=== PATIENT | male | born 2000 ===

== ENCOUNTER 2020-11-13 07:06 | Emergency (ER) | payer SELFPAY ==
--- NOTE | 2020-11-13 09:30 | Emergency Department Report ---
ED Upper Extremity Inj HPI - General Chief Complaint: Extremity Problem,Nontraumatic Stated Complaint: SOB/ BUG BITE Time Seen by Provider: 11/13/20 09:25 Source: patient Mode of arrival: Ambulatory Limitations: No Limitations - History of Present Illness Initial Comments: This is a 20-year-old -Chinese male who presents to the emergency room with an painful abscess to right upper extremity. Patient states 3 days ago he woke up and his arm was swollen. He thought he was bit by a bug and continue to put topical antibiotics to the area. He reports worsening swelling and pain over the past 2 days. He denies drainage, fever, numbness or tingling, or weakness. MD Complaint: Injury to:: right, arm Other Extremity Injury: Arm: Right (Upper arm) Handedness: right Severity scale (0 -10): 10 Associated Symptoms: denies: weakness, numbness - Related Data Previous Rx's Medication Instructions Recorded Last Taken Type Ibuprofen [Motrin 800 MG tab] 800 mg PO Q8HR PRN #20 tablet 11/13/20 Unknown Rx Sulfamethoxazole/Trimethoprim 1 each PO BID #20 tablet 11/13/20 Unknown Rx [Bactrim DS TAB] Allergies Allergy/AdvReac Type Severity Reaction Status Date / Time No Known Allergies Allergy Unverified 11/13/20 08:20 ED Review of Systems ROS: Stated complaint: SOB/ BUG BITE Other details as noted in HPI Constitutional: denies: chills, fever Skin: lesions (Abscess to upper right arm). denies: rash Neurological: denies: headache, weakness, paresthesias Psychiatric: denies: anxiety, depression ED Past Medical Hx - Past Medical History Previous Medical History?: Yes Hx Hypertension: No Hx CVA: No Hx Heart Attack/AMI: No Hx Congestive Heart Failure: No Hx Diabetes: No Hx Deep Vein Thrombosis: No Hx Pulmonary Embolism: No Hx GERD: No Hx Liver Disease: No Hx Renal Disease: No Hx of Cancer: No Hx Sickle Cell Disease: No Hx Arthritis: No Hx Headaches / Migraines: No Hx Seizures: No Hx Kidney Stones: No Hx Psychiatric Treatment: No Hx Asthma: Yes (Not taking medication) Hx COPD: No Hx Tuberculosis: No Hx Dementia: No Hx HIV: No - Surgical History Past Surgical History?: No Hx Coronary Stent: No Hx Open Heart Surgery: No Hx Pacemaker: No Hx Internal Defibrillator: No Hx Cholecystectomy: No Hx Appendectomy: No Hx Breast Surgery: No - Social History Smoking Status: Current Every Day Smoker Substance Use Type: None - Medications Home Medications: Home Medications Medication Instructions Recorded Confirmed Last Taken Type Ibuprofen [Motrin 800 MG tab] 800 mg PO Q8HR PRN #20 tablet 11/13/20 Unknown Rx Sulfamethoxazole/Trimethoprim 1 each PO BID #20 tablet 11/13/20 Unknown Rx [Bactrim DS TAB] ED Physical Exam - General Limitations: No Limitations General appearance: alert, in no apparent distress - Expanded Upper Extremity Exam Right Shoulder Exam: Present: normal inspection, full ROM. Absent: tenderness, swelling, abrasion, laceration, ecchymosis Upper Arm exam: Present: full ROM. Absent: abrasion, laceration, ecchymosis Elbow exam: Present: normal inspection, full ROM Forearm Wrist exam: Present: normal inspection, full ROM Hand Wrist exam: Present: normal inspection, full ROM Neuro motor exam: Present: wrist extension intact, thumb opposition intact, thumb IP flexion intact, thumb adduction intact, fingers 2-5 abduction intact Neurosensory exam: Present: radial nerve intact, ulnar nerve intact, median nerve intact. Absent: 2-point discrimination Vascular: Present: normal capillary refill, radial pulse (+2). Absent: vascular compromise - Neurological Exam Neurological exam: Present: alert, oriented X3, reflexes normal - Psychiatric Psychiatric exam: Present: normal affect, normal mood - Skin Skin exam: Present: warm, dry, intact, normal color, erythema (2 cm fluctuant nodule right medial humerus, 2-3 cellulitis surrounding area, TTP, no drainage). Absent: rash ED Course Vital Signs 11/13/20 11/13/20 11/13/20 07:47 07:50 11:48 Temperature 98.0 F 98.1 F Pulse Rate 88 89 72 Respiratory 16 14 16 Rate Blood Pressure 128/76 Blood Pressure 151/68 [Left] Blood Pressure 125/77 [Right] O2 Sat by Pulse 99 100 98 Oximetry - I & D Right Medial Arm Type of Procedure: Simple Blade Size: 11 I & D Procedure: betadine prep, sterile dressing applied, gauze wick placed Progress: The area was prepared and draped in the usual, sterile manner. The site was anesthetized with 1% lidocaine without epinephrine. A linear incision along the local skin lines was made and the purulent material expressed. The abcess was explored thoroughly and sequestered pockets were opened. Bleeding was minimal. Packing: idodoform Followup: The patient tolerated the procedure well without complications. Standard post-procedure care was explained and return precautions are given. ED Medical Decision Making - Medical Decision Making This is a 20 y.o. male that presents with a painful abscess to right medial upper arm. No history of prior abscess. Patient is stable and examined by me. Physical assessment of 2 cm fluctuance nodule to right medial humerus. No acute signs of distress noted. I&D refer to note. Discussed plan to start bactrim DS and ibuprofen with patient. Educated patient on follow up plan to have packing removed and wound reassessed in 2-3 days. Patient agrees to ED plan of care. Discharged home and follow up with PCP in 2-3 days. Critical care attestation.: If time is entered above; I have spent that time in minutes in the direct care of this critically ill patient, excluding procedure time. ED Disposition Clinical Impression: Cellulitis of arm, right, Abscess of arm, right Disposition: 01 HOME / SELF CARE / HOMELESS Is pt being admited?: No Condition: Stable Instructions: Skin Abscess, Cellulitis, Adult Additional Instructions: Keep packing in place for 2-3 days. Complete full round of bactrim DS antibiotic as prescribed. Follow up with PCP in 2-3 days. Return to ER if foul smelling discharge, swelling, or severe pain to wound. Prescriptions: Sulfamethoxazole/Trimethoprim [Bactrim DS TAB] 1 each PO BID #20 tablet Ibuprofen [Motrin 800 MG tab] 800 mg PO Q8HR PRN #20 tablet PRN Reason: Pain , Severe (7-10) Referrals: [facility] [Provider Group] - 3-5 Days [facility] [Outside] - 3-[address] [facility] [Outside] - 3-5 Days Forms: Work/School Release Form(ED) Time of Disposition: 11:16
[2020-11-13] MEDS: LIDOCAINE (1%) 10 MG/1 ML VIAL 20 ML MDV INFILTRATI ONE ×2 (11:12→11:13)
[2020-11-13 11:55] VITALS: BP 151/68
== END 2020-11-13 11:51 | disposition home or self-care (01) ==
LOC: ED 07:06
DX: L02.413 Cutaneous abscess of right upper limb (principal); L03.113 Cellulitis of right upper limb; J45.909 Unspecified asthma, uncomplicated; F17.200 Nicotine dependence, unspecified, uncomplicated
CPT/HCPCS: 99282